=== PATIENT | female | born 1940 ===

== ENCOUNTER 2020-12-06 10:17 | Outpatient (CLI) | payer OTHER | END 2020-12-06 14:00 | disposition home or self-care (01) | LOC: TOM 10:17 | PROVIDERS: ATTEND Internal Medicine Gastroenterology | DX: K57.30 Diverticulosis of large intestine without perforation or abscess without bleeding (principal); D50.8 Other iron deficiency anemias; K56.600 Partial intestinal obstruction, unspecified as to cause ==